=== PATIENT | male | born 1945 | race Caucasian/White ===

== ENCOUNTER → 2017-06-20 | Outpatient (CLI) | payer OTHER | END | disposition home or self-care (01) | LOC: NUC 10:00 | PROC: C7101ZZ Planar Nuclear Medicine Imaging of Bone Marrow using Technetium 99m (Tc-99m) (ICD-10-PCS; principal; 2017-06-20) | DX: M47.892 Other spondylosis, cervical region (principal); R93.7 Abnormal findings on diagnostic imaging of other parts of musculoskeletal system | CPT/HCPCS: 78306; A9503 ==